=== PATIENT | male | born 1955 ===

== ENCOUNTER 2024-11-05 09:57 | Emergency (ER) | payer MEDICARE, SELFPAY ==
[2024-11-05 10:03] VITALS: BP 94/65; PULSE 72; RESP 16; TEMP 36.4; O2SAT 98
--- NOTE | 2024-11-05 10:23 | ED.GENADULT ---
HPI - General Adult General Chief complaint: Recheck/Abnormal Lab/Rx Stated complaint: Med Refill Time Seen by Provider: 11/05/24 10:16 Source: patient and RN notes reviewed Mode of arrival: ambulatory Limitations: no limitations History of Present Illness HPI narrative: Patient presents today requesting a refill of his Chantix. Patient just moved into [facility] from [place] very recently and has been out of his medication for 6-7 days. He was on 1 mg twice daily. He believes he has an appointment with a PCP set up for 1 month from now to initiate care, set up by his daughter. Related Data Allergies Allergy/AdvReac Type Severity Reaction Status Date / Time tetanus toxoid, adsorbed Allergy Intermediate Swelling Verified 11/05/24 10:24 PMFSH Comments At time of signature, I have reviewed and agree with nursing past medical, surgical, social and family history unless otherwise noted. Please see nursing chart for further information. There is no relevant family history pertinent to the presenting complaint Exam Narrative: GENERAL: Well-appearing, well-nourished, and in no acute distress. HEAD: Normocephalic, atraumatic. EYES: EOMI. No redness or drainage. Conjunctivae normal. ENT: Mucous membranes pink and moist. NECK: Normal AROM. CHEST: No respiratory distress. EXTREMITIES: Normal range of motion. No edema. SKIN: Warm, dry, no rash. Capillary refill normal. Normal skin turgor. NEURO: No focal deficits. Alert and oriented x3. Gait steady. PSYCH: Normal affect. No signs of depression or anxiety. Course Course Level of Care: Express Care Visit Vital Signs Vital signs: Vital Signs Temperature 97.5 F L 11/05/24 10:03 Pulse Rate 72 11/05/24 10:03 Respiratory Rate 16 11/05/24 10:03 Blood Pressure 94/65 L 11/05/24 10:03 Pulse Oximetry 98 11/05/24 10:03 Oxygen Delivery Room Air 11/05/24 10:03 Temperature 97.5 F L 11/05/24 10:03 Pulse Rate 72 11/05/24 10:03 Respiratory Rate 16 11/05/24 10:03 Blood Pressure 94/65 L 11/05/24 10:03 Pulse Oximetry 98 11/05/24 10:03 Oxygen Delivery Room Air 11/05/24 10:03 Reviewed. Patient taking amlodipine and losartan for hypertension. Medical Decision Making MDM Narrative Medical decision making narrative: Prescription for 1 month of Chantix sent to pharmacy. Anticipatory guidance given. Differential Diagnosis Differential Diagnosis: Tobacco dependence, medication refill Vital Signs Vital Signs: Vital Signs Temperature 97.5 F L 11/05/24 10:03 Pulse Rate 72 11/05/24 10:03 Respiratory Rate 16 11/05/24 10:03 Blood Pressure 94/65 L 11/05/24 10:03 Pulse Oximetry 98 11/05/24 10:03 Oxygen Delivery Room Air 11/05/24 10:03 Temperature 97.5 F L 11/05/24 10:03 Pulse Rate 72 11/05/24 10:03 Respiratory Rate 16 11/05/24 10:03 Blood Pressure 94/65 L 11/05/24 10:03 Pulse Oximetry 98 11/05/24 10:03 Oxygen Delivery Room Air 11/05/24 10:03 Critical Care Time Critical Care Time Critical Care Time: No Discharge Plan Discharge Clinical Impression: Encounter for medication refill, Tobacco dependence Patient Disposition: Home Condition: Stable Additional Instructions: Please take the Chantix as prescribed. Follow-up with a PCP to initiate care as soon as possible. Patient Language: Ukrainian Prescriptions: New varenicline tartrate [Chantix] 1 mg tablet 1 mg PO BID 30 Days Qty: 60 0RF Follow-up/Referrals: PHYSICIAN,INTERNAL AUDIT CONSULTANT [Primary Care Provider] - Time of Disposition: 10:27
== END 2024-11-05 10:30 | disposition home or self-care (01) ==
PROVIDERS: Emergency Provider Nurse Practitioner
DX: Z76.0 Encounter for issue of repeat prescription (principal); F17.200 Nicotine dependence, unspecified, uncomplicated; I10 Essential (primary) hypertension; K21.9 Gastro-esophageal reflux disease without esophagitis; M19.90 Unspecified osteoarthritis, unspecified site
CPT/HCPCS: 99202; G0463